=== PATIENT | male | born 1990 | race Caucasian/White ===

== ENCOUNTER 2016-10-22 03:52 | Emergency (ER) | payer OTHER ==
[~2016-10-22] VITALS: Ht 170.2 cm; Wt 96.0 kg
[~2016-10-22 03:52] MED LIST: AMOX875 PO; MMW SS; Z.0.NO CURRENT MEDS
[2016-10-22 03:57] VITALS: BP 125/67; PULSE 132; RESP 16; TEMP 103.1; O2SAT 97
[2016-10-22] MEDS ORDERED: ACETAMINOPHEN 325 MG TAB PO ONE (04:15)
[2016-10-22] MEDS ORDERED: LOSA25TA PO (04:18)
[2016-10-22] MEDS ORDERED: HYDR12.57 PO (04:18)
[2016-10-22] MEDS ORDERED: ZANT150T2 PO (04:18)
--- NOTE | 2016-10-22 04:42 | PD ---
HPI Chief Complaint: Cold / Flu Symptoms Time Seen by Provider: 04:11 Travel History International Travel<30 days: No Contact w/Intl Traveler<30days: No Traveled to known affect area: No History of Present Illness HPI The patient is a 26 year old male who presents to the [facility] emergency department with a history of cough and congestion that began 3 days ago. The cough is been productive of a green sputum. The sputum this evening became mixed with flecks of blood. He has had n/v x4 in the last 24 hours. This evening he began to have a sensation of chest tightness and pressure with shortness of breath. He reports having Diarrhea 3-4 times in the last 24 hours. He denies having any blood in his stool or black or tarry stools. The patient reports having generalized body aches. He reports that he did not get his influenza vaccination in the fall. The patient reports having a frontal sinus headache with a thick white discharge. The patient has had fevers that it been persistent despite of alternating Tylenol with ibuprofen over the last 24 hours. The patient reports that his child was recently sick with an upper respiratory infection. He is unsure of any other sick contacts. The patient denies any abdominal pain,urinary symptoms, or neurologic symptoms. PFS Past Medical History Narrative Medical The patient's past medical history is significant for kidd's palsy x2, hypertension, gerd. Diminished Hearing: No GERD: Yes Hypertension: Yes Past Surgical History Narrative Surgical The patient's past surgical history is reportedly none. Social History Alcohol Use: Yes (occasional) Tobacco Use: Yes (dips tobacco) Substance Use: No Allergies-Medications (Allergen,Severity, Reaction): Coded Allergies: No Known Allergies (Verified , 10/22/16) Reported Meds & Prescriptions Reported Meds & Active Scripts Active Cefuroxime (Cefuroxime Axetil) 500 Mg Tab 500 Mg PO BID Azithromycin 250 Mg Tab 250 Mg PO DAILY Reported Zantac (Ranitidine HCl) 150 Mg Tab 150 Mg PO DAILY Hydrochlorothiazide 12.5 Mg Cap 12.5 Mg PO DAILY Losartan (Losartan Potassium) 25 Mg Tab 25 Mg PO DAILY zantac d/c and now on prilosec Review of Systems Except as stated in HPI: all other systems reviewed are Neg General / Constitutional: Positive: Fever Eyes: No: Visual changes HENT: Positive: Headaches, Rhinorrhea, Congestion Cardiovascular: Positive: Chest Pain or Discomfort, Dyspnea on exertion Respiratory: Positive: Cough, No: Shortness of Breath Gastrointestinal: Positive: Nausea, Vomiting, Diarrhea, Changes in Bowel Habits , No: Abdominal Pain Genitourinary: No: Dysuria Musculoskeletal: No: Pain Skin: No Rash Neurologic: No: Weakness, Focal Abnormalities, Change in Mentation, Slurred Speech, Sensory Disturbance Psychiatric: No: Depression Endocrine: No: Polydipsia Hematologic/Lymphatic: No: Easy Bruising Physical Exam Narrative General: The patient is a well-developed well-nourished male in no acute distress. Head and Neck exam: Head is normocephalic atraumatic. Sinuses: The patient has frontal sinus tenderness on palpation. Eyes: EOMI, pupils are equal round and reactive to light. Nose: Midline septum erythematous edematous nasal mucosa and a white nasal discharge Mouth: Dentition unremarkable. Moist mucus membranes. Posterior oropharynx is not erythematous. No tonsillar hypertrophy. Uvula midline. Airway patent. Neck: No palpable lymphadenopathy. No nuchal rigidity. No thyromegaly. Cardiovascular: Sinus tachycardia with a rate in the 130s without murmurs, gallops, or rubs. No pulse deficit to the extremities and simultaneous auscultation and palpation of his radial artery. Lungs: Clear to auscultation bilaterally. No wheezes, rhonchi, or rales. Frequent dry sounding cough is noted on examination. The patient has no wheezes or rhonchi audible. No accessory muscle use. No paroxysmal abdominal breathing. Abdomen: Soft, without tenderness to palpation in all 4 quadrants of the abdomen. No guarding, rebound, or rigidity. Normal bowel sounds are audible. No tenderness on palpation of McBurney's point. Extremities: No clubbing, cyanosis, or edema. 2+ pulses in all 4 extremities. No calf tenderness on palpation. Back: No spinous process tenderness to palpation. No costovertebral angle tenderness to palpation. Neurologic Exam: Grossly nonfocal. Skin Exam: No rash noted. Intact skin that is warm and dry. Data Data Last Documented VS Vital Signs Date Time Temp Pulse Resp B/P Pulse Ox O2 Delivery O2 Flow Rate FiO2 10/22/16 03:57 103.1 132 16 125/67 97 Room Air Orders Chest, Single Ap (10/22/16 04:12) Acetaminophen (Tylenol) (10/22/16 04:15) Complete Blood Count With Diff (10/22/16 04:42) Comprehensive Metabolic Panel (10/22/16 04:42) C-Reactive Protein (Crp) (10/22/16 04:42) Lipase (10/22/16 04:42) Urinalysis - C+S If Indicated (10/22/16 04:42) Influenzae A/B Antigen (10/22/16 04:42) Iv Access Insert/Monitor (10/22/16 04:42) Ecg Monitoring (10/22/16 04:42) Oximetry (10/22/16 04:42) Sodium Chlor 0.9% 1000 Ml Inj (Ns 1000 M (10/22/16 04:45) Ondansetron Inj (Zofran Inj) (10/22/16 04:45) Ceftriaxone Inj (Rocephin Inj) (10/22/16 05:45) Azithromycin Inj (Zithromax Inj) (10/22/16 05:45) Sodium Chlorid 0.9% 500 Ml Inj (Ns 500 M (10/22/16 05:45) Potassium Chloride (Kcl) (10/22/16 05:45) Labs Laboratory Tests Test 10/22/16 10/22/16 04:05 05:02 White Blood Count 10.4 TH/MM3 Red Blood Count 5.22 MIL/MM3 Hemoglobin 14.6 GM/DL Hematocrit 43.4 % Mean Corpuscular Volume 83.1 FL Mean Corpuscular Hemoglobin 28.0 PG Mean Corpuscular Hemoglobin 33.6 % Concent Red Cell Distribution Width 13.3 % Platelet Count 171 TH/MM3 Mean Platelet Volume 8.3 FL Neutrophils (%) (Auto) 81.4 % Lymphocytes (%) (Auto) 9.4 % Monocytes (%) (Auto) 8.5 % Eosinophils (%) (Auto) 0.3 % Basophils (%) (Auto) 0.4 % Neutrophils # (Auto) 8.5 TH/MM3 Lymphocytes # (Auto) 1.0 TH/MM3 Monocytes # (Auto) 0.9 TH/MM3 Eosinophils # (Auto) 0.0 TH/MM3 Basophils # (Auto) 0.0 TH/MM3 CBC Comment DIFF FINAL Differential Comment Sodium Level 135 MEQ/L Potassium Level 3.0 MEQ/L Chloride Level 98 MEQ/L Carbon Dioxide Level 27.2 MEQ/L Anion Gap 10 MEQ/L Blood Urea Nitrogen 9 MG/DL Creatinine 1.46 MG/DL Estimat Glomerular Filtration 58 ML/MIN Rate Random Glucose 148 MG/DL Calcium Level 8.3 MG/DL Total Bilirubin 0.5 MG/DL Aspartate Amino Transf 22 U/L (AST/SGOT) Alanine Aminotransferase 40 U/L (ALT/SGPT) Alkaline Phosphatase 75 U/L C-Reactive Protein 15.00 MG/DL Total Protein 7.9 GM/DL Albumin 3.5 GM/DL Lipase 99 U/L Urine Color YELLOW Urine Turbidity CLEAR Urine pH 6.0 Urine Specific [place] 1.023 Urine Protein 30 mg/dL Urine Glucose (UA) NEG mg/dL Urine Ketones NEG mg/dL Urine Occult Blood SMALL Urine Nitrite NEG Urine Bilirubin NEG Urine Urobilinogen LESS THAN 2.0 MG/DL Urine Leukocyte Esterase NEG Urine RBC 2 /hpf Urine WBC 2 /hpf Urine Squamous Epithelial <1 /hpf Cells Urine Bacteria RARE /hpf Urine Mucus FEW /lpf Microscopic Urinalysis Comment CULT NOT INDICATED MDM Medical Decision Making Medical Screen Exam Complete: Yes Emergency Medical Condition: Yes Medical Record Reviewed: Yes Interpretation(s) Last Impressions Chest X-Ray 10/22/16 0412 Signed Impressions: Service Date/Time: Saturday, October 22, 2016 04:56 - CONCLUSION: Mild left base infiltrate Tyrone Han MD Differential Diagnosis Pneumonia, versus bronchitis, versus influenza Narrative Course During the course of the patients emergency department visit, the patients history, examination, and differential diagnosis were reviewed with the patient. The patient had [-] IV access obtained and blood work sent for analysis. The patient was initially provided normal saline 1 L IV fluid bolus, Zofran 4 mg IV for nausea, Tylenol 650 by mouth 1 for fever. The patient was given potassium chloride 40 mEq by mouth 1 for mild hypokalemia. The patients laboratory studies were reviewed and remarkable for a white count of 10.4, hemoglobin 14.6, platelets 171 with 81.4 neutrophils, monocytes 8.5, CMP is remarkable for sodium of 135, potassium 3.0, creatinine 1.46, glucose 148 , C-reactive protein 15, lipase 99, urinalysis shows 30 protein, small occult blood, rare bacteria Radiology studies were reviewed and remarkable for a chest x-ray shows a mild left basilar infiltrate. The patient will be discharged home with a work excuse through . The patient was given a prescription for Ceftin and azithromycin. The patient was instructed regarding the importance of close follow-up with his primary care physician for reexamination in 3 days. The patient is resting comfortably and feels better, is alert and in no distress. The patients results and examination findings were discussed with the patient. The repeat examination is unremarkable and benign. The history, exam, diagnostic testing, and current condition do not suggest any significant pathology to warrant further testing, continued ED treatment, admission, or surgical evaluation at this point. The vital signs have been stable. The patient does not have uncontrollable pain, intractable vomiting, or other significant symptoms. The patient's condition is stable and appropriate for discharge. The patient will pursue further outpatient evaluation with a primary care physician or other designated or consulting physician as indicated in the discharge instructions. The patient expressed understanding and was agreeable with this plan. Diagnosis Primary Impression: Pneumonia Qualified Code: J18.1 - Pneumonia of left lower lobe due to infectious organism Referrals: Primary Care Physician 3 days Patient Instructions: Community Acquired Pneumonia (ED), General Instructions Departure Forms: Tests/Procedures, Work Release Enter return to work date: Oct 25, 2016 Med/Other Pt SpecificInfo: Prescription(s) given Scripts Cefuroxime 500 Mg [id number] Mg PO BID #20 TAB Ref 0 Prov:Janna Maldonado MD 10/22/16 Azithromycin 250 Mg [id number] Mg PO DAILY #4 TAB Ref 0 Prov:Janna Maldonado MD 10/22/16 Disposition: 01 DISCHARGE HOME Condition: Stable Janna Maldonado MD October 22, 2016 04:42
[2016-10-22] MEDS ORDERED: SODIUM CHLOR 0.9% 1000 ML INJ 1,000 ML IV ONE (04:45)
[2016-10-22] MEDS ORDERED: ONDANSETRON HCL 4 MG/2 ML VIAL IV ONE (04:45)
--- NOTE | 2016-10-22 05:09 | RADRPT ---
EXAM DATE/TIME: 10/22/2016 04:56 [facility] COMPARISON: No previous studies available for comparison. INDICATIONS : Cough. Congestion. MEDICAL HISTORY : None. SURGICAL HISTORY : None. ENCOUNTER: Initial ACUITY: 3 days PAIN SCORE: 5/10 LOCATION: Bilateral chest FINDINGS: There is mild parenchymal opacity in the left lung base. Right lung is grossly clear. Cardiac contour s are satisfactory for technique and projection. CONCLUSION: Mild left base infiltrate Tyrone Han MD on October 22, 2016 at 5:07 Board Certified Radiologist. This report was verified electronically.
[2016-10-22 05:14] LABS: BACTERIA, URINE RARE /hpf; BLOOD, URINE SMALL (NEG); COMMENT (UR) CULT NOT INDICATED; CULTURE IF INDICATED CULT NOT INDICATED; GLUCOSE,URINE NEG (NEG); KETONE, URINE NEG (NEG); MUCUS URINE FEW /lpf (OCC); NITRITE,URINE NEG (NEG); SQUAMOUS EPITHELIAL CELL URINE <1 /hpf (0-5); URINE COLOR YELLOW (YELLW/STRAW)
[2016-10-22 05:17] LABS: AUTOMATED NEUTROPHIL # 8.5 TH/MM3 (1.8-7.7); BASOPHIL % 0.4 % (0.0-2.0); EOSINOPHIL % 0.3 % (0.0-4.0); HEMATOCRIT 43.4 % (39.0-51.0); HEMO FLAGS DIFF FINAL; LYMPH % 9.4 % (9.0-44.0); MEAN CELL VOLUME 83.1 FL (80.0-100.0); MEAN CORPUSCULAR HGB CONC 33.6 % (32.0-36.0); MONO % 8.5 % (0.0-8.0); NEUT % 81.4 % (16.0-70.0); PLATELET COUNT 171 TH/MM3 (150-450); RED BLOOD COUNT 5.22 MIL/MM3 (4.50-5.90); RED CELL DISTRIBUTION WIDTH 13.3 % (11.6-17.2); WHITE BLOOD COUNT 10.4 TH/MM3 (4.0-11.0)
[2016-10-22 05:37] LABS: ANION GAP 10 MEQ/L (5-15); AST (GOT) 22 U/L (15-37); BICARBONATE 27.2 MEQ/L (21.0-32.0); BLOOD UREA NITROGEN 9 MG/DL (7-18); CHLORIDE 98 MEQ/L (98-107); GLOMERULAR FILTRATION RATE 58 ML/MIN (>89); SODIUM (NA) 135 MEQ/L (136-145)
[2016-10-22] MEDS ORDERED: AZIT250T3 PO (05:39)
[2016-10-22 05:40] LABS: ALKALINE PHOSPHATASE 75 U/L (45-117); ALT (GPT) 40 U/L (12-78); TOTAL BILIRUBIN ADULT 0.5 MG/DL (0.2-1.0)
[2016-10-22] MEDS ORDERED: POTASSIUM CHLORIDE 20 MEQ CONTROLLED RELEASE TAB PO ONE (05:45)
[2016-10-22] MEDS ORDERED: AZITHROMYCIN INJ 500 MG in SODIUM CHLOR 0.9% 250 ML INJ 250 ML IV ONE (05:45)
[2016-10-22] MEDS ORDERED: cefTRIAXone INJ 1,000 MG in SODIUM CHLORIDE 0.9% INJ 100 ML IV ONE (05:45)
[2016-10-22] MEDS ORDERED: SODIUM CHLORID 0.9% 500 ML INJ 500 ML IV ONE (05:45)
[2016-10-22] MEDS ORDERED: CEFU1TAB20 PO (06:06)
== END 2016-10-22 07:33 | disposition home or self-care (01) ==
LOC: NEPE 03:52
DX: J18.9 Pneumonia, unspecified organism (principal); I10 Essential (primary) hypertension; K21.9 Gastro-esophageal reflux disease without esophagitis; Z72.0 Tobacco use
CPT/HCPCS: 71010; 80053; 81001; 83690; 85025; 86140; 87804; 96361; 96374; 96375; 99285; J0456; J0696; J2405; J7030; J7040; J7050

== ENCOUNTER 2016-10-24 20:37 | Emergency (ER) | payer OTHER ==
[~2016-10-24] VITALS: Ht 177.8 cm; Wt 114.0 kg
[~2016-10-24 20:37] MED LIST changes: -AMOX875 PO; +AZIT250T3 PO; +CEFU1TAB20 PO; +HYDR12.57 PO; +LOSA25TA PO; -MMW SS; -Z.0.NO CURRENT MEDS; +ZANT150T2 PO
[2016-10-24 20:44] VITALS: BP 142/89; PULSE 84; RESP 16; TEMP 99.3; O2SAT 97
--- NOTE | 2016-10-24 20:51 | PD ---
Physical Exam Time Seen by Provider: 20:48 Narrative 26yo M c/o continued cough and coughing up blood after being diagnosed w pneumonia on Saturday. Have been taking antibx at home as prescribed. Says fever are lower, but still having them. Reports SOB. Called PCP and was told to come in for revaluation. Patient seen in triage. VS reviewed. Awaiting bed placement. Data Data Last Documented VS Vital Signs Date Time Temp Pulse Resp B/P Pulse Ox O2 Delivery O2 Flow Rate FiO2 10/24/16 20:44 99.3 84 16 142/89 97 Room Air MDM Supervised Visit with LETHA: Alina Leger October 24, 2016 20:51
[2016-10-24] MEDS ORDERED: guaiFENesin/CODEINE SYRUP 200 MG/20 MG/10 ML CUP PO ONE (22:30)
--- NOTE | 2016-10-24 22:33 | PD ---
HPI Chief Complaint: Cold / Flu Symptoms Time Seen by Provider: 22:18 Travel History International Travel<30 days: No Contact w/Intl Traveler<30days: No Traveled to known affect area: No History of Present Illness HPI 26yo M with no PMH presents to the ED with c/o persistent cough and sob. Pt was seen on 10/22/16 and CXR showed mild left base infiltrate and discharge with cefuroxime and azithromycin. Pt states he is still coughing and has occasional blood in the sputum. Pt is suppose to go back to work tomorrow but feels that he is still sick and wants to be evaluated. States fever has resolved and he is taking ibuprofen. Denies any chest pain, n/v, abdominal pain, focal weakness or numbness. PFSH Past Medical History Diminished Hearing: No GERD: Yes Hypertension: Yes Tetanus Vaccination: < 5 Years Influenza Vaccination: No Social History Alcohol Use: Yes (occasional) Tobacco Use: Yes (dips tobacco) Substance Use: No Allergies-Medications (Allergen,Severity, Reaction): Coded Allergies: No Known Allergies (Verified , 10/24/16) Reported Meds & Prescriptions Reported Meds & Active Scripts Active Guaifenesin Liq (Guaifenesin) 100 mg/5 ML Soln 100 Mg PO Q6H PRN 5 Days Cefuroxime (Cefuroxime Axetil) 500 Mg Tab 500 Mg PO BID Azithromycin 250 Mg Tab 250 Mg PO DAILY Reported Zantac (Ranitidine HCl) 150 Mg Tab 150 Mg PO DAILY Hydrochlorothiazide 12.5 Mg Cap 12.5 Mg PO DAILY Losartan (Losartan Potassium) 25 Mg Tab 25 Mg PO DAILY Review of Systems Except as stated in HPI: all other systems reviewed are Neg Physical Exam Narrative GENERAL: 26yo M not in distress. SKIN: Focused skin assessment warm/dry. HEAD: Atraumatic. Normocephalic. EYES: Pupils equal and round. No scleral icterus. No injection or drainage. ENT: No nasal bleeding or discharge. Mucous membranes pink and moist. NECK: Trachea midline. No JVD. CARDIOVASCULAR: Regular rate and rhythm. No murmur appreciated. RESPIRATORY: No accessory muscle use. Clear to auscultation. Breath sounds equal bilaterally. GASTROINTESTINAL: Abdomen soft, non-tender, nondistended. MUSCULOSKELETAL: No obvious deformities. No clubbing. No cyanosis. No edema. NEUROLOGICAL: Awake and alert. No obvious cranial nerve deficits. Motor grossly within normal limits. Normal speech. PSYCHIATRIC: Appropriate mood and affect; insight and judgment normal. Data Data Last Documented VS Vital Signs Date Time Temp Pulse Resp B/P Pulse Ox O2 Delivery O2 Flow Rate FiO2 10/24/16 20:49 16 10/24/16 20:44 99.3 84 142/89 97 Room Air Orders Complete Blood Count With Diff (10/24/16 22:26) Basic Metabolic Panel (Bmp) (10/24/16 22:26) Lactic Acid Sepsis Protocol (10/24/16 22:26) Chest, Single Ap (10/24/16 ) Guaifen-Cod 200-20 Mg/10ml Liq (Robituss (10/24/16 22:30) Labs Laboratory Tests Test 10/24/16 23:10 White Blood Count 5.3 TH/MM3 Red Blood Count 5.00 MIL/MM3 Hemoglobin 14.1 GM/DL Hematocrit 40.6 % Mean Corpuscular Volume 81.1 FL Mean Corpuscular Hemoglobin 28.1 PG Mean Corpuscular Hemoglobin 34.7 % Concent Red Cell Distribution Width 13.5 % Platelet Count 222 TH/MM3 Mean Platelet Volume 7.7 FL Neutrophils (%) (Auto) 51.8 % Lymphocytes (%) (Auto) 33.6 % Monocytes (%) (Auto) 9.0 % Eosinophils (%) (Auto) 4.2 % Basophils (%) (Auto) 1.4 % Neutrophils # (Auto) 2.7 TH/MM3 Lymphocytes # (Auto) 1.8 TH/MM3 Monocytes # (Auto) 0.5 TH/MM3 Eosinophils # (Auto) 0.2 TH/MM3 Basophils # (Auto) 0.1 TH/MM3 CBC Comment DIFF FINAL Differential Comment Sodium Level 138 MEQ/L Potassium Level 3.7 MEQ/L Chloride Level 101 MEQ/L Carbon Dioxide Level 30.9 MEQ/L Anion Gap 6 MEQ/L Blood Urea Nitrogen 9 MG/DL Creatinine 0.98 MG/DL Estimat Glomerular Filtration 92 ML/MIN Rate Random Glucose 89 MG/DL Lactic Acid Level 0.9 mmol/L Calcium Level 9.0 MG/DL MDM Medical Decision Making Medical Screen Exam Complete: Yes Emergency Medical Condition: Yes Differential Diagnosis Pneumonia vs. URI vs. bronchitis Narrative Course 26yo well appearing male here with c/o persistent sob and cough. Pt is on day 3 of antibiotics but is suppose to go back to work tomorrow and does not feel that he can. Pt is saturating at 100% on RA, no retractions and speaking in complete sentences. Labs reviewed, no leukocytosis. BMP unremarkable. Lactic acid 0.9. CXR showed unchanged left lower lobe infiltrate. Pt given robitussin and feels better. I really think that he is here for a few days off work. He has an appointment with his PMD tomorrow. Diagnosis Primary Impression: Pneumonia Qualified Code: J18.1 - Pneumonia of left lower lobe due to infectious organism Patient Instructions: General Instructions Departure Forms: Tests/Procedures, Work Release Enter return to work date: Oct 29, 2016 Additional Instructions: Please continue to take your antibiotics. Please return to the ED if symptoms worsen. Med/Other Pt SpecificInfo: Prescription(s) given Scripts Guaifenesin Liq 100 mg/5 ML [id number] Mg PO Q6H PRN (COUGH) 5 Days Ref 0 Prov:Tisha Henderson DO 10/25/16 Disposition: 01 DISCHARGE HOME Condition: Stable Tisha Henderson DO October 24, 2016 22:33
--- NOTE | 2016-10-24 22:49 | RADRPT ---
EXAM DATE/TIME: 10/24/2016 22:28 [facility] COMPARISON: CHEST SINGLE AP, October 22, 2016, 4:56. INDICATIONS : Cough for 1 week. Coughing up blood for 4 days. MEDICAL HISTORY : None. SURGICAL HISTORY : None. ENCOUNTER: Initial ACUITY: 1 week PAIN SCORE: 3/10 LOCATION: Bilateral chest FINDINGS: A single portable frontal view of the chest shows no significant change within the left lower lobe in filtrate. Right lung is clear. Heart is normal in size. No effusions. Mild scoliotic curvature. CONCLUSION: Unchanged left lower lobe infiltrate. Miguel Traore Jr., MD on October 24, 2016 at 22:47 Board Certified Radiologist. This report was verified electronically.
[2016-10-24 23:29] LABS: AUTOMATED NEUTROPHIL # 2.7 TH/MM3 (1.8-7.7); BASOPHIL # 0.1 TH/MM3 (0-0.2); BASOPHIL % 1.4 % (0.0-2.0); EOSINOPHIL # 0.2 TH/MM3 (0-0.4); EOSINOPHIL % 4.2 % (0.0-4.0); HEMATOCRIT 40.6 % (39.0-51.0); HEMO FLAGS DIFF FINAL; LYMPH % 33.6 % (9.0-44.0); LYMPHOCYTE # 1.8 TH/MM3 (1.0-4.8); MEAN CELL VOLUME 81.1 FL (80.0-100.0); MEAN CORPUSCULAR HEMOGLOBIN 28.1 PG (27.0-34.0); MEAN CORPUSCULAR HGB CONC 34.7 % (32.0-36.0); NEUT % 51.8 % (16.0-70.0); PLATELET COUNT 222 TH/MM3 (150-450); RED CELL DISTRIBUTION WIDTH 13.5 % (11.6-17.2); WHITE BLOOD COUNT 5.3 TH/MM3 (4.0-11.0)
[2016-10-24 23:51] LABS: BICARBONATE 30.9 MEQ/L (21.0-32.0); POTASSIUM 3.7 MEQ/L (3.5-5.1)
[2016-10-25] MEDS ORDERED: GUAI100S7 PO (00:19)
== END 2016-10-25 01:10 | disposition home or self-care (01) ==
LOC: NEPD 20:37
DX: J18.1 Lobar pneumonia, unspecified organism (principal); I10 Essential (primary) hypertension; Z72.0 Tobacco use
CPT/HCPCS: 71010; 80048; 83605; 85025; 99284